=== PATIENT | female | born 1950 | race Caucasian/White ===

== ENCOUNTER → 2020-08-04 | Outpatient (CLI) | payer MEDICARE, OTHER ==
[~2020-08-04] MED LIST: ELIQUIS 2.5 MG2.5 MG PO; NORCO 7.5-3251 EACH PO; TYLENOL 8 HOUR650 MG PO
== END ==
LOC: OPSV 07-27 11:00
DX: C54.1 Malignant neoplasm of endometrium (principal)
CPT/HCPCS: 96523; J1642

== ENCOUNTER → 2020-09-15 | Outpatient (CLI) | payer MEDICARE, OTHER | LOC: OPSV 09-01 12:00 | DX: C54.1 Malignant neoplasm of endometrium (principal) | CPT/HCPCS: 96523; J1642 ==

== ENCOUNTER → 2020-10-13 | Outpatient (CLI) | payer MEDICARE, OTHER | LOC: OPSV 12:00 | DX: C54.1 Malignant neoplasm of endometrium (principal) | CPT/HCPCS: 96523; J1642 ==

== ENCOUNTER → 2020-11-15 | Outpatient (CLI) | payer MEDICARE, OTHER | LOC: OPSV 11:46 | DX: C54.1 Malignant neoplasm of endometrium (principal); C18.9 Malignant neoplasm of colon, unspecified | CPT/HCPCS: 96523; J1642 ==

== ENCOUNTER → 2020-12-23 | Outpatient (CLI) | payer MEDICARE, OTHER | LOC: OPSV 11:55 | DX: C54.1 Malignant neoplasm of endometrium (principal); C18.9 Malignant neoplasm of colon, unspecified | CPT/HCPCS: 96523; J1642 ==

== ENCOUNTER → 2021-01-27 | Outpatient (CLI) | payer MEDICARE, OTHER | LOC: OPSV 11:23 | DX: Z45.2 Encounter for adjustment and management of vascular access device (principal); C54.1 Malignant neoplasm of endometrium; C18.9 Malignant neoplasm of colon, unspecified | CPT/HCPCS: 96523; J1642 ==

== ENCOUNTER → 2021-03-10 | Outpatient (CLI) | payer MEDICARE, OTHER | LOC: OPSV 02-24 12:00 | DX: C54.1 Malignant neoplasm of endometrium (principal); C18.9 Malignant neoplasm of colon, unspecified | CPT/HCPCS: 96523; J1642 ==

== ENCOUNTER → 2021-04-07 | Outpatient (CLI) | payer MEDICARE, OTHER | LOC: OPSV 10:24 | DX: Z45.2 Encounter for adjustment and management of vascular access device (principal); C18.9 Malignant neoplasm of colon, unspecified; C54.1 Malignant neoplasm of endometrium | CPT/HCPCS: 96523 ==

== ENCOUNTER → 2021-06-19 | Outpatient (CLI) | payer MEDICARE, OTHER | LOC: HEART 5 09:12 → ECHO 09:12 → HEART 5 09:30 | DX: G45.9 Transient cerebral ischemic attack, unspecified (principal); I65.23 Occlusion and stenosis of bilateral carotid arteries | CPT/HCPCS: ECHO; 93306; 93880 ==

== ENCOUNTER → 2021-09-21 | Outpatient (CLI) | payer MEDICARE, OTHER ==
[~2021-09-21] VITALS: Ht 162.6 cm; Wt 81.6 kg
== END ==
LOC: OPSV 11:50
DX: Z45.2 Encounter for adjustment and management of vascular access device (principal); C54.1 Malignant neoplasm of endometrium
CPT/HCPCS: 96523; J1642

== ENCOUNTER → 2021-10-20 | Outpatient (CLI) | payer MEDICARE, OTHER | LOC: OPSV 11:51 | DX: Z45.2 Encounter for adjustment and management of vascular access device (principal); C54.1 Malignant neoplasm of endometrium; C18.9 Malignant neoplasm of colon, unspecified | CPT/HCPCS: 96523; J1642 ==

== ENCOUNTER → 2021-12-07 | Outpatient (CLI) | payer MEDICARE, OTHER | LOC: OPSV 11-24 12:00 | DX: C54.1 Malignant neoplasm of endometrium (principal); Z45.2 Encounter for adjustment and management of vascular access device | CPT/HCPCS: 96523; J1642 ==

== ENCOUNTER → 2022-01-08 | Outpatient (CLI) | payer MEDICARE, OTHER | LOC: OPSV 11:53 | DX: C54.1 Malignant neoplasm of endometrium (principal) | CPT/HCPCS: 96523 ==

== ENCOUNTER → 2022-02-07 | Outpatient (CLI) | payer MEDICARE, OTHER | LOC: OPSV 11:55 | DX: Z45.2 Encounter for adjustment and management of vascular access device (principal); C54.1 Malignant neoplasm of endometrium | CPT/HCPCS: 96523; J1642 ==

== ENCOUNTER → 2022-03-15 | Outpatient (CLI) | payer MEDICARE, OTHER ==
[~2022-03-15] VITALS: Ht 162.6 cm; Wt 81.6 kg
== END ==
LOC: OPSV 03-09 12:00
DX: C54.1 Malignant neoplasm of endometrium (principal)
CPT/HCPCS: 96523; J1642

== ENCOUNTER → 2022-04-18 | Outpatient (CLI) | payer MEDICARE, OTHER ==
[~2022-04-18] VITALS: Ht 162.6 cm; Wt 81.6 kg
== END ==
LOC: OPSV 04-16 12:00
DX: Z45.2 Encounter for adjustment and management of vascular access device (principal); C54.1 Malignant neoplasm of endometrium
CPT/HCPCS: 96523